=== PATIENT | female | born 1980 | race Caucasian/White ===

== ENCOUNTER 2021-01-29 18:29 | Emergency (ER) | payer MEDICAID ==
--- NOTE | 2021-01-29 21:02 | XRAY Report ---
PROCEDURE: Ankle 3 View RT INDICATIONS: Trauma TECHNIQUE: 3 views of the ankle were acquired. COMPARISON: None FINDINGS: Bones: No fractures or dislocations. Ankle mortise is normally aligned. No suspicious bony lesions . Soft tissues: No tibiotalar joint effusion. Achilles tendon appears normal. Lateral soft tissue sw elling. IMPRESSION: Intact right ankle with mild lateral periarticular soft tissue swelling. Reviewed by: Neelima Fabian MD on 01/29/2021 9:00 PM PDT Approved by: Neelima Fabian MD on 01/29/2021 9:00 PM PDT Station ID: [id number]
--- NOTE | 2021-01-29 21:26 | ED Physician Documentation ---
History of Present Illness - Stated complaint Stated Complaint: RT ANKLE PX - Chief complaint Chief Complaint: Ext Problem - Additonal information Additional information: 40-year-old female presents emergency department for evaluation of acute right ankle pain and swelling after twisting the ankle when she stepped off a curb this evening. No history of previous injury. Did not strike her head. Review of Systems Constitutional: reports: Reviewed and negative Ears: reports: Reviewed and negative Nose: reports: Reviewed and negative Cardiac: reports: Reviewed and negative Respiratory: reports: Reviewed and negative Musculoskeletal: reports: Joint pain (Right ankle) PD PAST MEDICAL HISTORY - Past Medical History Past Medical History: No - Past Surgical History Past Surgical History: No - Allergies Allergies/Adverse Reactions: Allergies Allergy/AdvReac Type Severity Reaction Status Date / Time No Known Drug Allergies Allergy Verified 01/29/21 19:04 - Social History Does the pt smoke?: No Smoking Status: Never smoker Does the pt drink ETOH?: No Does the pt have substance abuse?: No - Immunizations Immunizations are current?: Yes PD ED PE EXPANDED - Extremities Extremities: Right ankle (Swelling and tenderness to the lateral malleolus. Normal dorsi and plantarflexion of the right foot. Full range of motion of the ankle passively. She is able to bear nearly full weight on the right foot. 2+ DP pulse.) Results - Vitals Vitals: Vital Signs - 24 hr 01/29/21 01/29/21 18:59 20:27 Temperature 36.6 C 36.6 C Heart Rate 86 85 Respiratory 15 15 Rate Blood Pressure 128/74 128/72 O2 Saturation 99 98 Oxygen O2 Source Room air - Rads (name of study) right ankle Radiology: Final report received (No acute fracture or dislocation.) PD MEDICAL DECISION MAKING - ED course Complexity details: reviewed results, d/w patient ED course: 40-year-old female presents emergency department for evaluation of acute right ankle pain sustained when she twisted the ankle stepping off a curb. X-ray negative for acute fracture and she is able to bear nearly full weight. She does have swelling and ecchymosis to the lateral malleolus. Patient was given an Manuel wrap which improved her gait and symptoms. Do recommend ibuprofen and ice. Emergent worrisome return precautions discussed. Departure - Departure Disposition: 01 Home, Self Care Clinical Impression: Moderate right ankle sprain Qualifiers: Encounter type: initial encounter Qualified Code(s): S93.401A - Sprain of unspecified ligament of right ankle, initial encounter Instructions: ED Sprain Ankle Comments: Sandra you have sprained your right ankle. The x-ray does not show a fracture. I do recommend that you wear the Manuel bandage when out of bed for the next 1 to 2 weeks. Take Tylenol or ibuprofen 600 mg with food 3 times a day for swelling and discomfort. Most sprains will resolve within 1 to 2 weeks. If not getting markedly better than please return to the ER or your primary care doctor to have the ankle reevaluated.
[2021-01-29 21:34] VITALS: BP 129/70
== END 2021-01-29 21:33 | disposition home or self-care (01) ==
LOC: ED 18:29
DX: S93.401A Sprain of unspecified ligament of right ankle, initial encounter (principal); X50.1XXA Overexertion from prolonged static or awkward postures, initial encounter; Y93.01 Activity, walking, marching and hiking; Y92.480 Sidewalk as the place of occurrence of the external cause
CPT/HCPCS: 99281; 99283